=== PATIENT | female | born 1960 | race Two or more races ===

== ENCOUNTER 2017-09-15 07:38 | Emergency (ER) | payer SELFPAY ==
[2017-09-15 07:44] VITALS: BP 122/70
--- NOTE | 2017-09-15 08:06 | EDPHY ---
H & P Time Seen by Provider: 09/15/17 07:55 HPI/ROS: CHIEF COMPLAINT: Left eye redness and irritation HISTORY OF PRESENT ILLNESS: 57-year-old female presents to the emergency department with left eye redness and irritation over last few days. She is here visiting from [place] taking care of her grandchildren. She noted some irritation in her left eye and has become increasingly red. No known trauma or injury. No symptoms in the right eye. Her eye has had some drainage in now she has developed some blurry vision. She denies pressure in her eye. ROS: No double vision. No reported trauma. No symptoms in the right eye. Past Medical/Surgical History: Hypertension Social History: Visiting from [place] Smoking Status: Never smoked Physical Exam: The patient appears in no apparent distress. She is wearing glasses. Blood pressure 122/70, heart rate 85, 97% on room air. Visual Acuity: noted from Nurse's notes. Pupils:equal round and reactive to light EOMI Lids: No lid swelling or edema. No redness to the eyelids or skin. Skin: no proptosis, no periorbital erythema or swelling, no vesicles Conjunctivae: Diffuse conjunctival injection noted in the left eye. No obvious discharge. Right eye is clear. Cornea: Slit lamp exam not performed. Anterior chamber:normal, no hyphema or hypopyon. No pain with applying pressure to the eye. Constitutional: Initial Vital Signs Temperature (C) 36.6 C 09/15/17 07:41 Heart Rate 85 09/15/17 07:41 Respiratory Rate 18 09/15/17 07:41 Blood Pressure 122/70 H 09/15/17 07:41 O2 Sat (%) 97 09/15/17 07:41 O2 Delivery Mode Room Air Allergies/Adverse Reactions: No Known Allergies Allergy (Unverified 09/15/17 07:40) Home Medications: Medication Instructions Recorded Ofloxacin 0.3% [Ocuflox] 1 - 2 drops EACHEYE QID 7 Days #1 09/15/17 btl amLODIPine BESYLATE 09/15/17 MDM/Departure - [facility] ED Course/Re-evaluation: 57-year-old female presents to the emergency department with left eye redness and irritation. She does not were contacts. No reported trauma. The redness is isolated to the conjunctiva of her left eye. No symptoms in the right eye. She has no pain with applying pressure to her left eye. Patient will be treated with Ocuflox drops for presumptive conjunctivitis. She was instructed to apply drops to both eyes. She does not speak [place], however her son-in-law at bedside was there to interpret for her. The patient and son-in-law at bedside were comfortable with this plan. She has no other questions. - Depart Disposition: Home, Routine, Self-Care Clinical Impression: Conjunctivitis Qualifiers: Conjunctivitis type: acute Acute conjunctivitis type: bacterial Laterality: left Qualified Code(s): H10.32 - Unspecified acute conjunctivitis, left eye Condition: Good Instructions: Conjunctivitis (ED) Additional Instructions: Ocuflox drops as directed to both eyes for 1 week. Adult Pain & Fever Control: We recommend Acetaminophen (Tylenol) and Ibuprofen (Motrin,Advil) for pain and fever control. When fever is high or pain severe, both drugs can be used at the same time, but at different intervals. Please note the time differences. Your dose is: Acetaminophen 1000mg every 4 to 6 hours Ibuprofen 600mg every 8 hours with food Note: do not take Acetaminophen with Hydrocodone (Vicodin, Lortab) or Oycodone (Percocet). These medications also contain Acetaminophen. No more than 3000mg of Acetaminophen should be taken in 24 hours (for an adult). Good hand washing. Follow up with business support liaison in 48 hr if symptoms do not improved. Return to the emergency department sooner if you develop visual changes, pressure, increasing pain, or if you are worse in any way. Prescriptions: Ofloxacin 0.3% [Ocuflox] 1 - 2 drops EACHEYE QID 7 Days #1 btl Referrals: Juan Pablo Welch MD [Medical Doctor] - 2-3 days, if not improved ( Social Research Assistant on-call)
== END 2017-09-15 08:12 | disposition home or self-care (01) ==
DX: H10.32 Unspecified acute conjunctivitis, left eye (principal); I10 Essential (primary) hypertension